=== PATIENT | male | born 1955 | race Two or more races ===

== ENCOUNTER 2016-10-24 15:03 | Inpatient (IN) | payer MEDICARE, MEDICAID ==
[~2016-10-24] VITALS: Ht 167.6 cm; Wt 61.2 kg
--- NOTE | 2016-10-24 15:30 | NUR ---
BBPA FROM PA: MISSED 2 HEMODIALYSIS TREATMENTS (M,W,F). PT ON VENT/TRACH. AAOX2. VSS. NOTED BUE EDEMA. SEEN BY FOR EVAL. SAFETY AND COMFORT MEASURES PROVIDED. WILL MONITOR.
[2016-10-24 15:43] VITALS: BP 103/51
[2016-10-24 16:35] LABS: BASOPHILS % (AUTO) 0.1 % (0.0-2.0); EOSINOPHILS # (AUTO) 0.2 /CMM (0.0-0.7); EOSINOPHILS % (AUTO) 1.4 % (0.0-6.0); HEMATOCRIT 24 % (39-51); HEMOGLOBIN 7.4 g/dL (13.5-17.5); LYMPHOCYTES # (AUTO) 0.7 /CMM (0.8-4.8); LYMPHOCYTES % (AUTO) 5.3 % (20.0-44.0); MEAN CORPUSCULAR HEMOGLOBIN 29 PG (26.0-33.0); MEAN CORPUSCULAR HGB CONC 31 g/dl (31.0-36.0); MEAN CORPUSCULAR VOLUME 95 fL (80-96); MONOCYTES # (AUTO) 0.2 /CMM (0.1-1.30); MONOCYTES % (AUTO) 1.7 % (2.0-12.0); NEUTROPHILS # (AUTO) 12.2 /CMM (1.8-8.9); NEUTROPHILS % (AUTO) 91.5 % (43.0-81.0); PLATELET COUNT (AUTO) 248 /CMM (150-450); RDW COEFFICIENT OF VARIATION 18.5 (11.5-15.0); RED BLOOD CELL COUNT(AUTO) 2.52 MIL/uL (4.5-6.0); WHITE BLOOD COUNT (AUTO) 13.3 K/uL (4.3-11.0)
[2016-10-24 16:50] LABS: MAGNESIUM 2.9 mg/dL (1.8-2.4); PHOSPHORUS 6.6 mg/dL (2.5-4.9)
[2016-10-24 16:53] LABS: ALBUMIN 1.8 g/dL (3.4-5.0); BILIRUBIN,DIRECT 0.1 mg/dL (0.0-0.2); BILIRUBIN,TOTAL 0.3 mg/dL (0.2-1.0); CALCIUM, SERUM 8.1 mg/dL (8.5-10.1); CREATININE 4.3 mg/dL (0.6-1.3); TOTAL PROTEIN, SERUM 7.5 g/dL (6.4-8.2)
--- NOTE | 2016-10-24 16:59 | NUR ---
PAGED DR LYMAN EXECUTIVE TALENT ACQUISITION CONSULTANT FOR DR KAUFFMAN FOR ER CONSULT
--- NOTE | 2016-10-24 17:12 | NUR ---
DR THOMSON ON THE PHONE WITH DR KAUFFMAN
[2016-10-24] MEDS ORDERED: LISI10TA5 GT (17:53)
[2016-10-24] MEDS ORDERED: OMEP40CA37 GT (17:53)
[2016-10-24] MEDS ORDERED: LEVO100T9 GT (17:53)
[2016-10-24] MEDS ORDERED: PARO20TA51 GT (17:53)
[2016-10-24] MEDS ORDERED: ISOS10TA2 GT (17:53)
[2016-10-24] MEDS ORDERED: HYDR-552 GT (17:53)
[2016-10-24] MEDS ORDERED: TIZA2TAB4 GT (17:53)
[2016-10-24] MEDS ORDERED: GLYC1TAB5 GT (17:53)
[2016-10-24] MEDS ORDERED: MELA3TAB GT (17:53)
[2016-10-24] MEDS ORDERED: AMIN30LI2 GT (17:53)
[2016-10-24] MEDS ORDERED: ZINC220T GT (17:53)
[2016-10-24] MEDS ORDERED: HYDR100T27 GT (17:53)
[2016-10-24] MEDS ORDERED: DOCU-170 GT (17:53)
[2016-10-24] MEDS ORDERED: CALC-838 PO (17:53)
[2016-10-24] MEDS ORDERED: INSU3INS6 SQ (17:53)
[2016-10-24] MEDS ORDERED: FOLI0.8T2 GT (17:53)
[2016-10-24] MEDS ORDERED: AMLO10TA2 GT (17:53)
[2016-10-24] MEDS ORDERED: ATOR40TA GT (17:53)
[2016-10-24] MEDS ORDERED: INSU100I14 SQ (17:53)
[2016-10-24] MEDS ORDERED: MAGNESIUM HYDROXIDE 30 ML UDC PO PRN (18:00)
[2016-10-24] MEDS ORDERED: MAG HYDROX/AL HYDROX/SIMETH 30 ML UDC PO PRN (18:00)
[2016-10-24] MEDS ORDERED: ZOLPIDEM TARTRATE 5 MG TABLET PO PRN (18:00)
[2016-10-24] MEDS ORDERED: ONDANSETRON HCL/PF 4 MG/2 ML VIAL IVP PRN (18:00)
[2016-10-24] MEDS ORDERED: ACETAMINOPHEN 325 MG TABLET PO PRN (18:00)
[2016-10-24] MEDS ORDERED: HYDROCODONE/APAP 5/325MG 1 EACH TABLET PO PRN (18:00)
--- NOTE | 2016-10-24 18:05 | NUR ---
REPORT GIVEN TO BRADEN LIZARRAGA FOR TELE.
--- NOTE | 2016-10-24 18:15 | NUR ---
MIDLINE NURSE AT BS.
--- NOTE | 2016-10-24 18:50 | NUR ---
SYSTEMS ENGINEER NOTES RECEIVED PT FROM E.R. STAFF, PT IS AWAKE, ALERT, MOUTHS WORDS, NOT IN DISTRESS, ASSISTED TO BED, PT ON VENT/TRACH, RT AT BEDSIDE, DIALYSIS CATH AT RIGHT UPPER LEG, MIDLINE AT RIGHT UPPER ARM, DIALYSIS NURSE AT STANDBY TO START DIALYSIS, KEPT PT COMFORTABLE IN BED.
[2016-10-24 19:53] VITALS: BP 110/58
[2016-10-24 20:00] VITALS: BP 110/58
--- NOTE | 2016-10-24 20:00 | NUR ---
TELE/RN NOTES PATIENT IN BED, HOB ELEVATED, ALERT, ORIENTED X1. VERBALIZE NEEDS BY MAKING SOUND W/ GOOD EYE CONTACT. RESPIRATIONS EVEN AND UNLABORED. REQUIRE MECHANICAL VENT FOR AIRWAY SUPPORT. SKIN WARM TO TOUCH. MIDLINE CATHETER PATENCY CHECK, LEFT HAND IV SITE PATENT AND ABLE TO FLUSH. G TUBE CHECK FOR PLACEMENT AND PATENCY. ABDOMEN CHECK. ABLE TO HEAR BOWEL SOUNDS IN ALL QUADRANT. REQUIRE EXTENSIVE ASSISTANCE FOR TURNING AND REPOSITION. WILL CONTINUE TO MONITOR. BUE AND BLE WEAK.
--- NOTE | 2016-10-24 21:15 | NUR ---
STUMP SHOOTER NOTES NEW ADMITTED PATIENT WAS BROUGHT FROM ER ON A GURNEY. PATIENT IS A 61 YO MALE WHO CAME FROM [facility] DUE TO MALFUNCTION OF DIALYSIS CATH AND WEAKNESS. ON TELE MONITORIN AT SR 83. ALERT, ORIENTED X2. CAN FOLLOW SIMPLE COMMANDS. VENT SETTING AT AC 20, VT 500 F1O2 40% PEEEP 5, HD EVERY MWF. CODE DNR W/ TUBE FEEDING AND VENT. WOUND CARE ISSUES , ON GTUBE FEEDING, DX HYPONATREMIASEVERE AND ESRD. BLOOD HGB LEVEL AT 7.4., S/P HD TODAY W 1 L OUT PUIT. B/P 123/61, PULSE 84. CALLED DALY SAID WILL RETURN CALL. AWAITING FOR CALL BACK.
--- NOTE | 2016-10-24 22:19 | NUR ---
TELE/RN NOTES CATRACHITO BOLANOS. INFORMED REGARDING PATIENT S/P HEMODIALYSIS 1L OUTPUT, HGB LEVEL 7.4. DX ESRD, SEVERE HYPONATREMIA. ON GTUBE, W/ TEMPORARY HD CATHETHER OFN LEFT THIGH. S/P MIDLINE INSERTION
--- NOTE | 2016-10-24 23:00 | NUR ---
tele/rn notes GTUBE CHECK FOR PLACEMENT, ABLE TO FLUSH FOR PATENCY.
[2016-10-25] VITALS: BP 132/66
--- NOTE | 2016-10-25 01:33 | NUR ---
TELE/RN NOTES MD CATRACHITO BOLANOS WAS INFORMED AND SAID TO FOLLOW UP WITH PRITESH IBARRA REGARDING HGB LEVEL 7.4, FOR ANY ORDER ALSO TO HOLD GTUBE FEEDING FOR NOW AND F/U FOR TONG JONAS MD.
[2016-10-25 04:00] VITALS: BP 123/67
--- NOTE | 2016-10-25 06:10 | NUR ---
316-1 PATIENT I HOB ELEVATE. ASSISTED/REPOSTION FOR COMFORT.EXTENSIVE ASSISTANCE NEEDED FOR REPOSITION, MULTIPLE WOUND AROUND BODY. GTUBE CHEK FOR PATENCY. WILL ENDORSE TO AM RN REGARDING PLAN OF CARE.BED IN LOCK POSITION.
[2016-10-25 07:45] LABS: BASOPHILS # (AUTO) 0.1 /CMM (0.0-0.2); BASOPHILS % (AUTO) 0.7 % (0.0-2.0); HEMATOCRIT 22 % (39-51); HEMOGLOBIN 7.2 g/dL (13.5-17.5); LYMPHOCYTES # (AUTO) 0.5 /CMM (0.8-4.8); LYMPHOCYTES % (AUTO) 3.8 % (20.0-44.0); MEAN CORPUSCULAR HEMOGLOBIN 29 PG (26.0-33.0); MEAN CORPUSCULAR HGB CONC 33 g/dl (31.0-36.0); MEAN CORPUSCULAR VOLUME 90 fL (80-96); MONOCYTES # (AUTO) 0.7 /CMM (0.1-1.30); MONOCYTES % (AUTO) 5.5 % (2.0-12.0); NEUTROPHILS # (AUTO) 12.1 /CMM (1.8-8.9); PLATELET COUNT (AUTO) 223 /CMM (150-450); RDW COEFFICIENT OF VARIATION 19.6 (11.5-15.0); RED BLOOD CELL COUNT(AUTO) 2.47 MIL/uL (4.5-6.0); WHITE BLOOD COUNT (AUTO) 13.5 K/uL (4.3-11.0)
--- NOTE | 2016-10-25 08:00 | NUR ---
MS RN NOTES PT RESTING IN BED, IN HIGH [place] POSITION. NO ACUTE DISTRESS OR DISCOMFORT NOTED. VENT SETTINGS NOTED. MIDLINE IS ON RIGHT UPPER ARM, INTACT PATENT. NO SOB NOTED. WILL CONTINUE TO MONITOR.
[2016-10-25 08:05] LABS: ALBUMIN 1.9 g/dL (3.4-5.0); BILIRUBIN,TOTAL 0.4 mg/dL (0.2-1.0); CREATININE 3.7 mg/dL (0.6-1.3); MAGNESIUM 2.7 mg/dL (1.8-2.4); PHOSPHORUS 4.6 mg/dL (2.5-4.9); POTASSIUM 4.5 mmol/L (3.5-5.1)
--- NOTE | 2016-10-25 08:15 | NUR ---
TURN OUT NOTES CALL RECEIVED FROM LAB REPORTING CRITICAL LAB RESULTS OF GLUCOSE 46 & BUN 115. GLUCOSE RECHECKED 36. NOTIFIED MD RECEIVED ORDERS FOR D 50 IV ONCE, NOTED & CARRIED OUT. PT IS ASYMPTOMATIC. WILL RECHECK BS LEVEL IN 15 MINUTES. CONTINUING TO MONITOR CLOSELY.
[2016-10-25] MEDS ORDERED: DEXTROSE 50%-WATER 50 ML DISP.SYRIN ONE (08:19)
--- NOTE | 2016-10-25 08:45 | NUR ---
TOBACCO ROLLER NOTES PT'S BLOOD SUGAR RECHECKED. WAS 101, IN STABLE CONDITION, GTUBE FEEDING STARTED ' NOVASOURCE 60 MLS/HR.' WILL CONTINUE TO MONITOR CLOSELY.
[2016-10-25] MEDS: RENAL NOVASOURCE 1,000 ML BOTTLE GT PRN ×2 (10:00→23:35)
--- NOTE | 2016-10-25 11:50 | NUR ---
DISABILITY SERVICES COORDINATOR NOTES PT REFUSED BODY ASSESSMENT & WOUND TREATMENT. ALLOWED WOUND TREATMENT TO HEELS & CHEST BUT REFUSED TO BACK OF THE BODY SITES DESPITE OF EXPLANATION OF RISK & BENEFITS OF DAILY WOUND CARE. WILL ENCOURAGE & EXPLAIN AGAIN TO ASSESS THE BACK TO APPLY THE WOUND TREATMENT. OBSERVING CLOSELY.
--- NOTE | 2016-10-25 11:57 | NUR ---
WOUND CARE CONSULT: PT PRESENTS WITH BILATERAL HEEL WOUNDS (LEFT INTACT DTI AND RT HEEL ESCHAR), PRESENT ON ADMISSION. PT REFUSED TO TURN FOR FULL SKIN ASSESSMENT OF BACK AND SACRAL/BUTTOCKS AREAS. LIMITED ASSESSMENT DUE TO PT REFUSAL WITH AGITATION. WOUND AND SKIN RECOMMENDATIONS MADE BASED ON PHOTO DOCUMENTATION AND NURSING DOCUMENTATION/SENDING FACILITY DOCUMENTATION. PT TO BE PLACED ON RINKU ISOFLEX LOW AIRLOSS BED. PT TO BE TURNED AND REPOSITIONED EVERY 2 HRS PT CONDITION PERMITS, HEELS FLOATED. WILL SEE PRN. IBARRA IN AGREEMENT WITH PLAN OF CARE. Addendum: 10/25/16 at 1201 by MARSHA VALENZUELA WNDNU Amended: Links added.
[2016-10-25 12:00] VITALS: BP 153/76
[2016-10-25] MEDS: hydrALAZINE HCL 50 MG TABLET GT SCH ×3 (13:00→20:19)
[2016-10-25] MEDS: ISOSORBIDE DINITRATE (10MG) 10 MG TABLET GT SCH (13:00)
[2016-10-25] MEDS: AMLODIPINE BESYLATE 10 MG TABLET GT SCH (13:00)
[2016-10-25] MEDS: LISINOPRIL (10MG) 10 MG TABLET GT SCH (13:00)
[2016-10-25] MEDS ORDERED: INSULIN ASPART HUMALOG/NOVOLOG 100 UNIT/ML CARTRIDGE SQ PRN (13:00)
[2016-10-25] MEDS ORDERED: PROSOURCE / PROSTAT (PYXIS) 30 ML UDC GT SCH (13:00)
--- NOTE | 2016-10-25 13:00 | NUR ---
CARETAKER GROUNDS NOTES BLOOD PRESSURE MEDICATIONS HELD DUE TO PT BEING DIALYZED.
[2016-10-25] MEDS: DOCUSATE SODIUM LIQ 100 MG/10 ML UDC GT SCH (13:16)
[2016-10-25] MEDS: LEVOTHYROXINE SODIUM 100 MCG TABLET GT SCH (13:19)
[2016-10-25] MEDS: PANTOPRAZOLE 40 MG/PACK PACK NG SCH (13:19)
[2016-10-25] MEDS: GLYCOPYRROLATE 1 MG TABLET GT SCH ×2 (13:19→20:19)
[2016-10-25] MEDS ORDERED: EPOETIN ALFA (10,000 UNIT) 10,000 UNIT/ML VIAL IV ONE (13:30)
[2016-10-25 16:00] VITALS: BP 142/69
--- NOTE | 2016-10-25 17:30 | NUR ---
POWERHOUSE ENGINEER NOTES PT ALLOWED TO DO WOUND TREATMENT ON THE BACK, DRESSING APPLIED. REPOSITIONED & MAD3E COMFORTABLE. OBSERVING CLOSELY.
[2016-10-25] MEDS: CALCIUM CARB 600MG /VIT D 1 EACH TABLET PO SCH (17:48)
[2016-10-25] MEDS: PAROXETINE HCL 20 MG TABLET GT SCH (17:50)
[2016-10-25] MEDS: HYDROCODONE/APAP 5/325MG 1 EACH TABLET GT SCH (17:50)
--- NOTE | 2016-10-25 19:06 | NUR ---
CALL CENTER REPRESENTATIVE NOTES PT IN BED, NON VERBAL, ALERT,ORIENTED. VENT SETTING NOTED. G TUBE INTACT PATENT, TOLERATING FEEDING WELL. ALL DUE MEDICATIONS ADMINISTERED, TOLERATED WELL. ALL NEEDS MET. PT NON COMPLAINT WITH REPOSITIONING & TURNING. BED IN LOW LOCKED POSITION. CALL LIGHT WITHIN REACH, WILL ENDORSE EPHRAIM TO PM SHIFT.
--- NOTE | 2016-10-25 19:36 | NUR ---
TELE/RN OPENING NOTES PATIENT IN HOB ELEVATED, OPENS EYES AND ABLE TO ASK FOR HELP BY POINTING AND MAKE SOUNDS. INFORMED TO TURNED ON THE FAN HE WANTS TO FEEL COLD. SKIN WARM TO TOUCH. SUCTION NEEDED. WILL CONTINUE TO PROVIDE CARE. GGTUBE PLACEMENT CHECK. FEEDING CHECK FOR RESIDUALS WITH ZERO RESIDUALS. RT AT BEDSIDE WILL PROVIDE RESPIRATORY CARE. BED IN LOCK POSITION. WILL CONTINUE TO PROVIDE. CARE.
--- NOTE | 2016-10-25 19:47 | NUR ---
TELE/RN NOTES PATIENT ON VENT, O2 SAT 98%. IV SITE ON LEFT HAND REMOVED. MONITORING FOR BLEEDING.COVERED WITH GAUZE AND TAPE.
[2016-10-25 20:00] VITALS: BP 147/73
[2016-10-25] MEDS ORDERED: DEXTROSE 50%-WATER 50 ML DISP.SYRIN IV PRN (20:00)
[2016-10-25] MEDS: *INSULIN REGULAR(HUMULIN R)HUM 100 UNIT/ML VIAL SQ PRN (21:00)
[2016-10-25] MEDS: INSULIN REGULAR, HUMAN 100 UNIT/ML 3 ML VIAL SQ PRN (21:07)
[2016-10-25] MEDS: INSULIN DETEMIR 100 UNIT/ML CARTRIDGE SQ SCH (21:09)
[2016-10-25] MEDS: ATORVASTATIN 40 MG TABLET GT SCH (21:19)
[2016-10-25] MEDS: BLOOD SUGAR DIAGNOSTIC 1 EACH STRIP VI SCH ×2 (21:19→22:00)
[2016-10-25] MEDS: TIZANIDINE HCL 4 MG TABLET GT SCH (21:19)
--- NOTE | 2016-10-25 21:36 | NUR ---
tele/rn notes patient observed grimace, administered tylenol 650mg via gtube. will continue monitor pain effectiveness.
[2016-10-25] MEDS ORDERED: Medication Not On Formulary EA (Melatonin 6 MG) GT SCH (22:00)
[2016-10-25] MEDS ORDERED: BLOOD SUGAR DIAGNOSTIC 1 EACH STRIP IN SCH (22:00)
--- NOTE | 2016-10-25 22:00 | NUR ---
TELE/RN NOTES INSULIN 2 UNIT WAS GIVEN SLIDING SCALE /SCAN LABEL BUT REFLECT AC INSTEAD OF HS.FOR RECORD KEEPING.
[2016-10-26] VITALS: BP_SYST 130; BP_SYST 133; BP_DIAS 63; BP_DIAS 69
[2016-10-26 04:00] VITALS: BP_SYST 125; BP_SYST 135; BP_DIAS 61; BP_DIAS 74
[2016-10-26] MEDS: GLYCOPYRROLATE 1 MG TABLET GT SCH ×3 (04:11→21:23)
[2016-10-26] MEDS: BLOOD SUGAR DIAGNOSTIC 1 EACH STRIP VI SCH ×4 (06:09→21:24)
[2016-10-26] MEDS: INSULIN REGULAR, HUMAN 100 UNIT/ML 3 ML VIAL SQ PRN (06:11)
--- NOTE | 2016-10-26 06:21 | NUR ---
316-1 tele/rn closing notes PATIENT IN HOB ELEVATED. EYES OPEN AND ABLE TO OPEN EYES. PROVIDED CARE REPOSTION FOR COmfort .WILL ENDORSE TO AM RN.RESPIRATIONS EVEN AND UNLABORED REQUIRE FREQUENT MONITORING TO PROVIDE CARE WILL ENDORSE TO AM RN FOR EPHRAIM. tele reading at SR 93. awake, alert,RESTING COMFORTABLY IN BED. BLOOD SUGAR CHECK RESULT 164 WITH 2 UNIT SLIDING SCALE COVERAGE. NO RESIDUAL IN FEEDING. PLACEMENT CHECK. APPLIED NEEDED DRESSING TO CLEANSE AND COVER GTUBE SITE. REPOSITION FOR COMFORT. SUCTION NEEDED. ABLE TO SLEEP ATLEAST 3 TO 4 HOURS.
[2016-10-26 08:00] VITALS: BP 146/71
--- NOTE | 2016-10-26 08:00 | NUR ---
TICK ERADICATOR: INITIAL NOTE RECEIVED PT ALERT AND ORIENTED X2. ON VENTILATOR. PT ABLE TO NOD AND OPEN EYES. NO DISTRESS NOTED. NO PAIN NOTED. NO SOB NOTED. ON G-TUBE FEEDING OF NOVASOURCE RUNNING AT 60CC. DENYS MIDLINE. SITE CLEAR. NO REDNESS. DRESSING INTACT. RESTING COMFORTABLY IN BED. CALL LIGHT WITHIN REACH.
[2016-10-26] MEDS: HYDROCODONE/APAP 5/325MG 1 EACH TABLET GT SCH ×2 (09:00→18:33)
[2016-10-26] MEDS: hydrALAZINE HCL 50 MG TABLET GT SCH ×4 (09:01→21:23)
[2016-10-26] MEDS: VIT B CMPLX 3/FA/VIT C/BIOTIN 1 TAB TABLET GT SCH (09:01)
[2016-10-26] MEDS: PROSOURCE / PROSTAT (PYXIS) 30 ML UDC GT SCH (09:03)
[2016-10-26] MEDS ORDERED: FEE PK DOSING 1 MIN EA MC ONE (11:00)
--- NOTE | 2016-10-26 11:15 | NUR ---
COMPLETED HEMODIALYSIS TODAY WITH 1 LITER OUTPUT BP 145/71 HR 93.PT REFUSED TO BE TRANSFERRED TO A SPECIAL SHERIDAN BED SAYING HE'S TIRED AND DOESN'T WANT TO BE BOTHERED.
[2016-10-26] MEDS ORDERED: VANCOMYCIN 1 GM in IV D5W 250 ML IV ONE (11:30)
[2016-10-26] MEDS: DOCUSATE SODIUM LIQ 100 MG/10 ML UDC GT SCH (12:22)
[2016-10-26] MEDS: LEVOTHYROXINE SODIUM 100 MCG TABLET GT SCH (12:22)
[2016-10-26] MEDS: LISINOPRIL (10MG) 10 MG TABLET GT SCH (12:22)
[2016-10-26] MEDS: AMLODIPINE BESYLATE 10 MG TABLET GT SCH (12:23)
[2016-10-26] MEDS: ISOSORBIDE DINITRATE (10MG) 10 MG TABLET GT SCH (12:23)
[2016-10-26] MEDS: PANTOPRAZOLE 40 MG/PACK PACK NG SCH (12:26)
--- NOTE | 2016-10-26 13:15 | NUR ---
RT PMV TRIALS DONE WITH SPEECH THERAPIST AT BEDSIDE. CUFF DEFLATED AND MONITORED PT. PT UNABLE TO TOLERATE FOR LESS THAN 5 MINUTES. INCREASE WOB AND DESATURATION NOTED. PT BEGAN TO VOMIT. PMV REMOVED AND CUFF INFLATED. PT STABLE, AWAKE/ALERT AND RESPONSIVE. SpO2 96-98%. ZIA ANDREA NOTIFIED AND AWARE. WILL CONTINUE TO MONITOR THE PATIENT CLOSELY.
[2016-10-26] MEDS: PIPERACILLIN /TAZOBACTAM 2.25 G in IV D5W 50 ML IV SCH ×3 (13:37→23:54)
--- NOTE | 2016-10-26 15:00 | NUR ---
RT RECEIVED PT TRACH'D ON [facility] VENT WITH SETTINGS PER MD ORDER. PT IS AWAKE AND RESPONSIVE. CHEESE FACTORY WORKER DONE. BILAT RHONCHI BREATH SOUNDS ON AUSCULTATION. VENT PLUGGED INTO RED OUTLET. AMBU BAG AT BEDSIDE. TRACH SECURED AND AIRWAY PATENT. SUCTIONED MODERATE AMOUNTS OF THICK PALE/YELLOW SECRETIONS. NO SOB OR SIGNS OF DISTRESS NOTED. WILL CONTINUE TO MONITOR THE PATIENT FOR ANY CHANGES. Addendum: 10/26/16 at 1827 by NATHALIA CHACON RT Amended: Links added.
[2016-10-26 16:00] VITALS: BP 141/52
--- NOTE | 2016-10-26 18:00 | NUR ---
PT RESTING IN BED DENYING ANY PAIN OR DISTRESS.PT DOESN'T WANT TO BE BOTHERED.CALL LIGHT PLACED WITHIN REACH. WITH HOB ELEVATED.WITH ONGOING GT FEEDING OF NOVASOURCE AT 60 ML/HR INFUSING WELL.
[2016-10-26] MEDS: ZINC SULFATE 220 MG CAPSULE GT SCH (18:33)
[2016-10-26] MEDS: CALCIUM CARB 600MG /VIT D 1 EACH TABLET PO SCH (18:33)
[2016-10-26] MEDS: PAROXETINE HCL 20 MG TABLET GT SCH (18:34)
--- NOTE | 2016-10-26 19:30 | NUR ---
QUARRY SUPERVISOR OPENING NOTES: PATIENT IN BED, AOX2, ON [facility] VENTILATION WITH THE FF SETTINGS: AC: 20, TV: 500, FIO2: 40; PEEP: 5. BREATHING EVEN AND UNLABORED WITH O2 SAT AT 99%. ON TELE MONITORING: SR AT RATE OF 80S WITH INVERTED T WAVE. PATIENT HAS A DENYS MIDLINE, INTACT AND PATENT TO FLUSH. R FEMORAL EBLA CATH WITH CLEAN AND INTACT DRESSING, NO SIGNS OF BLEEDING NOTED. WITH G TUBE FEEDING OF NOVASOURCE RUNNING AT 60 ML/HR, PATIENT TOLERATING FEEDING WELL WITH NO RESIDUAL NOTED. MAINTAINED HOB ELEVATED AT ALL TIMES. PATIENT'S DEMETRICE FEET WITH CLEAN AND INTACT DRESSINGS, MAINTAINED OFFLOADED ON PILLOWS. PROVIDED FOR COMFORT AND SAFETY. BED IN LOWEST AND LOCKED POSITION. SUCTIONED PRN. WILL CONT TO MONITOR.
[2016-10-26 20:03] VITALS: BP 141/69
[2016-10-26 20:05] VITALS: BP 141/69
[2016-10-26] MEDS: RENAL NOVASOURCE 1,000 ML BOTTLE GT PRN (21:04)
[2016-10-26] MEDS: ATORVASTATIN 40 MG TABLET GT SCH (21:23)
[2016-10-26] MEDS: TIZANIDINE HCL 4 MG TABLET GT SCH (21:23)
[2016-10-26] MEDS: INSULIN DETEMIR 100 UNIT/ML CARTRIDGE SQ SCH (21:28)
[2016-10-26] MEDS: *INSULIN REGULAR(HUMULIN R)HUM 100 UNIT/ML VIAL SQ PRN (21:30)
--- NOTE | 2016-10-26 21:45 | NUR ---
RN NOTES: PT'S BS CHECKED AT 183 MG/DL, ADMINISTERED 6 UNITS LEVEMIR AND 3 UNITS ERGULAR INSULIN. CONT CONTINUOUS GT FEEDING, TOLERATING FEEDING WELL.
[2016-10-27] VITALS (8 sets, daily range): BP systolic 117–149; BP diastolic 60–79
[2016-10-27] MEDS: GLYCOPYRROLATE 1 MG TABLET GT SCH ×3 (05:08→21:35)
[2016-10-27] MEDS: PIPERACILLIN /TAZOBACTAM 2.25 G in IV D5W 50 ML IV SCH ×4 (05:18→23:05)
[2016-10-27] MEDS: BLOOD SUGAR DIAGNOSTIC 1 EACH STRIP VI SCH ×4 (06:34→21:35)
[2016-10-27] MEDS: INSULIN REGULAR, HUMAN 100 UNIT/ML 3 ML VIAL SQ PRN ×3 (06:37→17:07)
--- NOTE | 2016-10-27 06:49 | NUR ---
SURGICAL MANAGER CLOSING NOTES: PATIENT IN BED, AOX2, [facility] V[facility], BREATHING EVEN AND UNLABORED, MAINTAINED HOB ELEVATED AND SUCTIONED PRN. O2 SATS AT 97-99% THROUGH SHIFT. ON TELE MONITORING WITH SR AT RATE OF 80S WITH INVERTED T WAVE. GT FEEDING OF NOVASOURCE RUNNING AT 60 ML/HR, PATIENT TOLERATING FEEDING WELL, NO RESIDUALS NOTED THROUGH SHIFT. BLOOD SUGAR CHECKED AT 147 MG/DL, ADMINISTERED 2 UNITS REGULAR INSULIN PER SCALE. MORNING CARE DONE, TURNED PATIENT Q 2/ PT PERMITS. PATIENT STILL COMBATIVE AND UNCOOPERATIVE. NO ACUTE CHANGE IN CONDITION NOTED THROUGH SHIFT. WILL ENDORSE TO AM RN FOR EPHRAIM.
--- NOTE | 2016-10-27 07:53 | NUR ---
FREELANCE ART DIRECTOR: INITIAL NOTE RECEIVED PT A/O X2. IS ABLE TO USE GESTURES AND HAND MOVEMENTS TO COMMUNICATE. NO DISTRESS NOTED. NO PAIN NOTED. NO SOB NOTED. RUQ MIDLINE INTACT. PATENT. NO REDNESS OR DRAINAGE. R FEMORAL QUARON CATH. DRESSING INTACT. ON VENTILATOR. RESTING COMFORTABLY IN BED. CALL LIGHT WITHIN REACH.
[2016-10-27 08:28] LABS: BASOPHILS # (AUTO) 0.1 /CMM (0.0-0.2); BASOPHILS % (AUTO) 0.6 % (0.0-2.0); HEMATOCRIT 24 % (39-51); HEMOGLOBIN 7.5 g/dL (13.5-17.5); LYMPHOCYTES # (AUTO) 0.7 /CMM (0.8-4.8); LYMPHOCYTES % (AUTO) 6.6 % (20.0-44.0); MEAN CORPUSCULAR HEMOGLOBIN 29 PG (26.0-33.0); MEAN CORPUSCULAR HGB CONC 32 g/dl (31.0-36.0); MEAN CORPUSCULAR VOLUME 92 fL (80-96); MONOCYTES # (AUTO) 0.9 /CMM (0.1-1.30); MONOCYTES % (AUTO) 8.7 % (2.0-12.0); NEUTROPHILS # (AUTO) 8.7 /CMM (1.8-8.9); NEUTROPHILS % (AUTO) 84.1 % (43.0-81.0); PLATELET COUNT (AUTO) 223 /CMM (150-450); RDW COEFFICIENT OF VARIATION 22.1 (11.5-15.0); RED BLOOD CELL COUNT(AUTO) 2.57 MIL/uL (4.5-6.0); WHITE BLOOD COUNT (AUTO) 10.3 K/uL (4.3-11.0)
[2016-10-27] MEDS: VIT B CMPLX 3/FA/VIT C/BIOTIN 1 TAB TABLET GT SCH (08:41)
[2016-10-27] MEDS: hydrALAZINE HCL 50 MG TABLET GT SCH ×4 (08:41→21:35)
[2016-10-27] MEDS: HYDROCODONE/APAP 5/325MG 1 EACH TABLET GT SCH ×2 (08:42→17:05)
[2016-10-27] MEDS: PROSOURCE / PROSTAT (PYXIS) 30 ML UDC GT SCH (08:45)
[2016-10-27 09:30] LABS: CALCIUM, SERUM 7.9 mg/dL (8.5-10.1); POTASSIUM 3.4 mmol/L (3.5-5.1)
[2016-10-27 09:31] LABS: CREATININE 2.8 mg/dL (0.6-1.3)
--- NOTE | 2016-10-27 10:00 | NUR ---
FUNERAL DRIVER NOTE: ATTEMPTED TO CHECK AND CHANGE DIAPER, AND PT REFUSED. PT IS UNCOOPERATIVE AND GESTURES TO BE LEFT ALONE. RISKS AND BENEFITS EXPLAINED. PT HITTING STAFF ON ATTEMPT OF CHECKING THE DIAPER.
[2016-10-27] MEDS ORDERED: VANCOMYCIN 500 MG in IV D5W 100 ML IV PRN (11:00)
--- NOTE | 2016-10-27 11:30 | NUR ---
DIRECTOR RECORDS MANAGEMENT: NOTE SPEECH THERAPY ATTEMPTED ANOTHER SWALLOW EVALUATION FOR THE PT TO BE ABLE TO HAVE ICE CHIPS. PT UNABLE TO SWALLOW OR TOLERATE ICE CHIPS WHILE BALLOON IS DEFLATED. PT UNABLE TO HAVE ICE CHIPS.
--- NOTE | 2016-10-27 12:00 | NUR ---
FIELD RING ASSEMBLER NOTE: RE- ATTEMPTED TO CHECK AND CHANGE DIAPER, AND PT REFUSED. PT IS UNCOOPERATIVE AND GESTURES TO BE LEFT ALONE. RISKS AND BENEFITS EXPLAINED. PT HITTING STAFF ON ATTEMPT OF CHECKING THE DIAPER.
[2016-10-27] MEDS: LISINOPRIL (10MG) 10 MG TABLET GT SCH (12:46)
[2016-10-27] MEDS: DOCUSATE SODIUM LIQ 100 MG/10 ML UDC GT SCH (12:46)
[2016-10-27] MEDS: LEVOTHYROXINE SODIUM 100 MCG TABLET GT SCH (12:46)
[2016-10-27] MEDS: ISOSORBIDE DINITRATE (10MG) 10 MG TABLET GT SCH (12:46)
[2016-10-27] MEDS: PANTOPRAZOLE 40 MG/PACK PACK NG SCH (12:46)
[2016-10-27] MEDS: AMLODIPINE BESYLATE 10 MG TABLET GT SCH (12:47)
--- NOTE | 2016-10-27 14:00 | NUR ---
FORGING MACHINE HAND NOTE: RE- ATTEMPTED TO CHECK AND CHANGE DIAPER, AND PT REFUSED. PT IS UNCOOPERATIVE AND GESTURES TO BE LEFT ALONE. RISKS AND BENEFITS EXPLAINED. PT HITTING STAFF ON ATTEMPT OF CHECKING THE DIAPER.
--- NOTE | 2016-10-27 14:41 | NUR ---
CUSTOMER EXPERT: NOTE PER MD CHAUDHARY, ORDERED TO KEEP BILATERAL UPPER EXTREMITIES ELEVATED WITH PILLOWS. PT DOES NOT WANT PILLOWS AND GETS IRRITATED. ALL RISKS AND BENEFITS EXPLAINED. PT MOUTHS TO TAKE PILLOWS AWAY.
--- NOTE | 2016-10-27 16:00 | NUR ---
MEDICAL AFFAIRS DIRECTOR NOTE: RE-ATTEMPTED TO CHECK AND CHANGE DIAPER, AND PT REFUSED. PT IS UNCOOPERATIVE AND GESTURES TO BE LEFT ALONE. RISKS AND BENEFITS EXPLAINED. PT HITTING STAFF ON ATTEMPT OF CHECKING THE DIAPER.
[2016-10-27] MEDS: CALCIUM CARB 600MG /VIT D 1 EACH TABLET PO SCH (17:04)
[2016-10-27] MEDS: ZINC SULFATE 220 MG CAPSULE GT SCH (17:04)
[2016-10-27] MEDS: PAROXETINE HCL 20 MG TABLET GT SCH (17:05)
--- NOTE | 2016-10-27 17:56 | NUR ---
MEDICAL CASE WORKER: NOTES PT REFUSES TO BE REPOSITIONED Q 2HRS. PT MOUTHS AND GESTURES TO GO AWAY AND STOP. ALL RISKS AND BENEFITS EXPLAINED. PT DID NOT COOPERATE, AND STILL REFUSED. ASKED MULTIPLE TIMES.
--- NOTE | 2016-10-27 18:08 | NUR ---
JUNIOR ACCOUNT MANAGER NOTE: RE-ATTEMPTED TO CHANGE DIAPER. PT FINALLY ACCEPTED TO BE CHANGED. PT STOOL WAS LARGE AND MODERATELY SOFT. SCROTAL REDNESS NOTED. PT TEACHING DONE. EMPHASIZED THE IMPORTANCE OF DIAPER CHANGING AND SKIN CARE MANAGEMENT. APPLIED Z-GUARD ON AFFECTED AREA. NEPILEX ON SACRAL REGION. REPOSITIONED PT.
--- NOTE | 2016-10-27 18:34 | NUR ---
EXCELLENCE LEADER: CLOSING NOTE PT ALERT AND ORIENTED X2. ON VINICIO. NO PAIN NOTED. ADMINISTERED ALL MEDICATIONS ON TIME. NO ADVERSE REACTIONS NOTED. NO DISTRESS NOTED. NO SOB NOTED. PT REFUSED TO BE REPOSITIONED ORDERED Q2HRS. PT UNCOOPERATIVE, AND GESTURES TO BE LEFT ALONE. PT DID NOT AGREE TO KEEP BOTH UPPER EXTREMITIES ELEVATED. PILLOWS PLACED AND PT PUSHES THEM AWAY. DID NOT AGREE TO HAVE A DIAPER CHANGE ALL DAY UNTIL 1800. SEVERAL ATTEMPTS TAKEN, ALL RISKS AND BENEFITS WHERE EXPLAINED. G-TUBE PATENT. PT MIDLINE PATENT. NO REDNESS, DRESSING INTACT. PT DOES NOT LIKE TO BE BOTHERED. RESTING COMFORTABLY IN BED. CALL LIGHT WITHIN REACH.
--- NOTE | 2016-10-27 19:40 | NUR ---
ACTUARIAL TECHNICIAN NOTE: PATIENT RESTING IN BED, NO ACUTE DISTRESS NOTED. BREATHING EVEN AND UNLABORED, NO SOB NOTED. VENT SETTINGS IN PLACE. DENYS MIDLINE IN PLACE. RIGHT FEMORAL ELBA CATH IN PLACE, NO BLEEDING NOTED. G-TUBE IN PLACE, NO RESIDUAL. HOB ELEVATED. NO S/S OF HYPER/HYPOGLYCEMIA NOTED. BED LOCKED AND IN LOWEST POSITION, CALL LIGHT IN REACH. WILL CONTINUE TO MONITOR.
[2016-10-27] MEDS: TIZANIDINE HCL 4 MG TABLET GT SCH (21:35)
[2016-10-27] MEDS: INSULIN DETEMIR 100 UNIT/ML CARTRIDGE SQ SCH (21:41)
[2016-10-27] MEDS: RENAL NOVASOURCE 1,000 ML BOTTLE GT PRN (21:43)
[2016-10-27] MEDS: ATORVASTATIN 40 MG TABLET GT SCH (21:43)
--- NOTE | 2016-10-27 22:30 | NUR ---
CLINICAL REHABILITATION LIAISON NOTE: PATIENT BLOOD SUGAR LEVEL 94 MG/DL, PATIENT TO RECEIVE LEVEMIR 6 UNITS PER MD ORDER. PATIENT ON G-TUBE FEEDING. NO S/S OF HYPER/HYPOGLYCEMIA NOTED. WILL CONTINUE TO MONITOR.
[2016-10-28] VITALS: BP 111/65
[2016-10-28 04:00] VITALS: BP 146/74
[2016-10-28] MEDS: GLYCOPYRROLATE 1 MG TABLET GT SCH ×3 (05:54→21:43)
[2016-10-28] MEDS: PIPERACILLIN /TAZOBACTAM 2.25 G in IV D5W 50 ML IV SCH ×3 (05:55→17:23)
--- NOTE | 2016-10-28 06:15 | NUR ---
CRYOGENICS REPAIRER NOTE: PATIENT RESTING IN BED, NO ACUTE DISTRESS NOTED. BREATHING EVEN AND UNLABORED, NO SOB NOTED. VENT SETTINGS IN PLACE. DENYS MIDLINE IN PLACE. RIGHT FEMORAL ELBA CATH IN PLACE, NO BLEEDING NOTED. G-TUBE IN PLACE. HOB ELEVATED. PATIENT BLOOD SUGAR LEVEL 165 MG/DL, PATIENT TO RECEIVE 3 UNITS OF INSULIN PER SLIDING SCALE, NO S/S OF HYPER/HYPOGLYCEMIA NOTED. PATIENT REFUSING TO BE CHANGED AND TO BE REPOSITIONED, EXPLAINED RISK AND BENEFITS, BUT CONTINUE TO REFUSE. PATIENT CLEAN AND WITH PILLOWS TO OFFLOAD BACK. BED LOCKED AND IN LOWEST POSITION, CALL LIGHT IN REACH. WILL ENDORSE TO DAY NURSE TO CONTINUE WITH PLAN OF CARE.
--- NOTE | 2016-10-28 07:15 | NUR ---
RN NOTES PT IS IN BED, RESTING COMFORTABLY. PT CONNECTED TO VENT VIA TRACH, NO SOB OR DISTRESS NOTED, O2 SAT AT 97%. DENYS MIDLINE INTACT AND SALINE LOCKED, RIGHT FEMORAL CATH IN PLACE. G-TUBE INTACT, RUNNING NOVASOURCE AT 60 ML/HR. SAFETY MEASURES ARE IN PLACE, CALL LIGHT IS IN REACH. WILL CONTINUE TO MONITOR.
[2016-10-28] MEDS: BLOOD SUGAR DIAGNOSTIC 1 EACH STRIP VI SCH ×4 (07:31→21:55)
[2016-10-28] MEDS: INSULIN REGULAR, HUMAN 100 UNIT/ML 3 ML VIAL SQ PRN ×4 (07:31→17:32)
[2016-10-28 08:00] VITALS: BP 132/65
[2016-10-28] MEDS: PROSOURCE / PROSTAT (PYXIS) 30 ML UDC GT SCH (08:08)
[2016-10-28] MEDS: VIT B CMPLX 3/FA/VIT C/BIOTIN 1 TAB TABLET GT SCH (08:08)
[2016-10-28] MEDS: HYDROCODONE/APAP 5/325MG 1 EACH TABLET GT SCH ×2 (08:09→16:38)
[2016-10-28] MEDS: hydrALAZINE HCL 50 MG TABLET GT SCH ×4 (08:12→21:44)
[2016-10-28 12:00] VITALS: BP 130/65
[2016-10-28] MEDS: DOCUSATE SODIUM LIQ 100 MG/10 ML UDC GT SCH (12:14)
[2016-10-28] MEDS: LEVOTHYROXINE SODIUM 100 MCG TABLET GT SCH (12:14)
[2016-10-28] MEDS: PANTOPRAZOLE 40 MG/PACK PACK NG SCH (12:14)
[2016-10-28] MEDS: ISOSORBIDE DINITRATE (10MG) 10 MG TABLET GT SCH (12:15)
[2016-10-28] MEDS: AMLODIPINE BESYLATE 10 MG TABLET GT SCH (12:15)
[2016-10-28] MEDS: LISINOPRIL (10MG) 10 MG TABLET GT SCH (13:03)
[2016-10-28 16:00] VITALS: BP 130/68
[2016-10-28] MEDS: LACTOBACILLUS RHAMNOSUS GG 1 EACH CAP.SPRINK GT SCH (16:38)
[2016-10-28] MEDS: ZINC SULFATE 220 MG CAPSULE GT SCH (16:38)
[2016-10-28] MEDS: CALCIUM CARB 600MG /VIT D 1 EACH TABLET PO SCH (16:38)
[2016-10-28] MEDS: PAROXETINE HCL 20 MG TABLET GT SCH (16:38)
--- NOTE | 2016-10-28 18:35 | NUR ---
RN NOTES PT IS IN BED IN SEMI-FOWLERS, RESTING COMFORTABLY. PT CONNECTED TO VENT, ALL SETTINGS ARE ACCURATE, NO SOB, O2 SAT AT 98%. DENYS MIDLINE INTACT AND PATENT, RUNNING VANCO AT 100 ML/HR. R FEMORAL ELBA CATH, INTACT AND IN PLACE, USED FOR DIALYSIS TODAY. G-TUBE IS INTACT AND FLUSHED. PT WAS CLEANED/CHANGED AND REPOSITIONED THROUGHOUT SHIFT. SAFETY MEASURES ARE IN PLACE, CALL LIGHT IS IN REACH. WILL ENDORSE TO BUILD AND RELEASE MANAGER RN FOR CONTINUITY OF CARE.
--- NOTE | 2016-10-28 19:00 | NUR ---
RN MS NOTES PT RECEIVED AWAKE IN BED, A/O X 2, PATIENT NOT IN ACUTE RESPIRATORY/DISTRESS, IV SITE INTACT NO S/S OF INFILTRATION. ALL VENT SETTING ARE ACCURATE ORDERED, CALL LIGHT WITHIN REACH. SAFETY MEASURES IN PLACE, ON LOW BED, WILL CONTINUE TO MONITOR PT.
[2016-10-28 20:00] VITALS: BP 137/72
[2016-10-28] MEDS: ATORVASTATIN 40 MG TABLET GT SCH (21:43)
[2016-10-28] MEDS: TIZANIDINE HCL 4 MG TABLET GT SCH (21:43)
[2016-10-28] MEDS: RENAL NOVASOURCE 1,000 ML BOTTLE GT PRN (21:44)
[2016-10-28] MEDS: *INSULIN REGULAR(HUMULIN R)HUM 100 UNIT/ML VIAL SQ PRN (21:55)
[2016-10-28] MEDS: INSULIN DETEMIR 100 UNIT/ML CARTRIDGE SQ SCH (22:03)
[2016-10-29] VITALS (13 sets, daily range): BP systolic 110–143; BP diastolic 60–76
--- NOTE | 2016-10-29 00:36 | NUR ---
PATIENT DISCHARGE PATIENT LEFT AT 0030 TO HOME PER MD, PATIENT ON STABLE CONDITION NO S/S OF DISTRESS NOTED, NO A/R FROM BT, NO CHEST PAIN, NO HEADACHE, NO NAUSEA AND VOMITING, NO COMPLAINS OF PAIN, VS STABLE, TOLERATING ROOM AIR 98%, HEALTH EDUCATION AND EXIT CARE WAS PROVIDED, EDUCATION ABOUT DISEASE AND RISKS AND BENEFITS FOLLOW UP CARE PROVIDED, VERBALIZED UNDERSTANDING. DOCUMENTS WAS PROVIDED. IV SITE WAS REMOVED L [id number] WITH MINIMAL BLEEDING, APPLIED CLEAN DRESSING FOR PRESSURE AND KEPT CLEAN AND DRY. TOLERATED PROCEDURE WELL. MD AWARE OF PATIENT BEING DISCHARGE, ALL BELONGINGS WAS TAKEN, ASSIST PATIENT TO GO TO THE WHEELCHAIR WITH [employer] TO THE [employer] FOR TRANSPORTATION WITH NEIDA BERNARD PATIENT APPRECIATIVE TO NURSES AND THANKFUL. PATIENT LEFT WITH THEIR OWN TRANSPORTATION. Addendum: 10/29/16 at 0040 by JAMISON LAYNE RN ADDENDUM: MISTAKEN ENTRY THIS DOCUMENTATION IS FOR DIFFERENT PATIENT
[2016-10-29] MEDS: PIPERACILLIN /TAZOBACTAM 2.25 G in IV D5W 50 ML IV SCH ×5 (00:51→23:56)
[2016-10-29] MEDS: GLYCOPYRROLATE 1 MG TABLET GT SCH ×3 (05:03→21:19)
[2016-10-29] MEDS: BLOOD SUGAR DIAGNOSTIC 1 EACH STRIP VI SCH ×4 (05:34→22:39)
[2016-10-29] MEDS: INSULIN REGULAR, HUMAN 100 UNIT/ML 3 ML VIAL SQ PRN ×3 (05:44→16:52)
--- NOTE | 2016-10-29 06:37 | NUR ---
ROLL LINE OPERATOR CLOSING NOTES PATIENT COMFORTABLY ASLEEP AND EASILY AWAKEN, A/0 X 2, HEAD OF BED ELEVATED FOR BETTER LUNG EXPANSION AND GOOD CIRCULATION. PT MOUTH WORDS, ATTACH TO TELE MONITOR, 02 SAT 100 %, TOLERATING SAME VENT SETTINGS ORDERED, RESPIRATIONS EVEN AND UNLABORED DENYS MIDLINE IV SITE INTACT WITH NO S/S OF INFILTRATED PATENT AND FLUSHED, FREQUENT VISUAL CHECK DONE FOR SAFETY EVERY 2 HOURS. NURSING CARE RENDERED, NEEDS ATTENDED AND ANTICIPATED, KEPT CLEAN AND DRY AND COMFORTABLE, GOOD SKIN CARE PROVIDED. PT IS NON COMPLIANT OF TURNING EVERY 2 HOURS DESPITE EXPLANATION RISKS AND BENEFITS EXPLAINED UNABLE TO ASSESS WELL SACRUM BUT EDUCATION WAS PROVIDED TO THE PATIENT. DEFER TO MD. OFFLOAD AT ALL TIMES. SAFE HAZARD FREE ENVIRONMENT PROVIDED. CALL LIGHT WITHIN EASY TO REACH, ON LOW BED AT ALL TIMES TO ENSURE SAFETY, WILL ENDORSE TO THE NEXT SHIFT CONTINUE PLAN OF CARE
[2016-10-29 07:15] LABS: BASOPHILS % (AUTO) 0.5 % (0.0-2.0); HEMATOCRIT 22 % (39-51); LYMPHOCYTES # (AUTO) 0.6 /CMM (0.8-4.8); LYMPHOCYTES % (AUTO) 6.5 % (20.0-44.0); MEAN CORPUSCULAR HEMOGLOBIN 29 PG (26.0-33.0); MEAN CORPUSCULAR HGB CONC 31 g/dl (31.0-36.0); MEAN CORPUSCULAR VOLUME 94 fL (80-96); MONOCYTES # (AUTO) 0.7 /CMM (0.1-1.30); MONOCYTES % (AUTO) 7.4 % (2.0-12.0); NEUTROPHILS # (AUTO) 7.5 /CMM (1.8-8.9); NEUTROPHILS % (AUTO) 85.6 % (43.0-81.0); PLATELET COUNT (AUTO) 229 /CMM (150-450); RDW COEFFICIENT OF VARIATION 24.7 (11.5-15.0); RED BLOOD CELL COUNT(AUTO) 2.36 MIL/uL (4.5-6.0); WHITE BLOOD COUNT (AUTO) 8.8 K/uL (4.3-11.0)
--- NOTE | 2016-10-29 07:15 | NUR ---
RN NOTES PT IS IN BED SLEEPING COMFORTABLY IN SEMI-FOWLERS POSITION. PT CONNECTED TO VENT, NO SIGNS OF DISTRESS AND O2 SAT AT 100%. DENYS MIDLINE INTACT AND PATENT, SL. RIGHT FEMORAL ELBA CATH INTACT. G-TUBE INTACT AND RUNNING NOVASOURCE AT 60 ML/HR. SAFETY MEASURES ARE IN PLACE, CALL LIGHT IS IN REACH. WILL CONTINUE TO MONITOR.
[2016-10-29 07:34] LABS: HEMOGLOBIN 6.9 g/dL (13.5-17.5)
[2016-10-29 08:09] LABS: CREATININE 2.8 mg/dL (0.6-1.3); POTASSIUM 3.2 mmol/L (3.5-5.1)
[2016-10-29] MEDS: VIT B CMPLX 3/FA/VIT C/BIOTIN 1 TAB TABLET GT SCH (08:16)
[2016-10-29] MEDS: HYDROCODONE/APAP 5/325MG 1 EACH TABLET GT SCH ×2 (08:16→16:44)
[2016-10-29] MEDS: LACTOBACILLUS RHAMNOSUS GG 1 EACH CAP.SPRINK GT SCH ×2 (08:16→16:44)
[2016-10-29] MEDS: PROSOURCE / PROSTAT (PYXIS) 30 ML UDC GT SCH (08:16)
[2016-10-29] MEDS: hydrALAZINE HCL 50 MG TABLET GT SCH ×4 (08:17→21:19)
[2016-10-29 09:30] LABS: IRON, SERUM 44 ug/dl (50-175); TOTAL IRON BINDING CAPACITY 98 ug/dl (250-450)
[2016-10-29 10:13] LABS: BAND % (MANUAL) 1 % (0.0-5.0); EOSINOPHILS % (MANUAL) 2 % (0-4); LYMPHOCYTES % (MANUAL) 5 % (16-48); MONOCYTES % (MANUAL) 5 % (0-11.0); NEUTROPHILS % (MANUAL) 87 (42-76)
[2016-10-29] MEDS: DOCUSATE SODIUM LIQ 100 MG/10 ML UDC GT SCH (12:53)
[2016-10-29] MEDS: LEVOTHYROXINE SODIUM 100 MCG TABLET GT SCH (12:53)
[2016-10-29] MEDS: PANTOPRAZOLE 40 MG/PACK PACK NG SCH (12:53)
[2016-10-29] MEDS: AMLODIPINE BESYLATE 10 MG TABLET GT SCH (12:54)
[2016-10-29] MEDS: LISINOPRIL (10MG) 10 MG TABLET GT SCH (12:54)
[2016-10-29] MEDS: ISOSORBIDE DINITRATE (10MG) 10 MG TABLET GT SCH (12:54)
[2016-10-29] MEDS: PAROXETINE HCL 20 MG TABLET GT SCH (16:44)
[2016-10-29] MEDS: ZINC SULFATE 220 MG CAPSULE GT SCH (16:44)
[2016-10-29] MEDS: CALCIUM CARB 600MG /VIT D 1 EACH TABLET PO SCH (16:44)
--- NOTE | 2016-10-29 18:47 | NUR ---
RN NOTES PT IS RESTING IN BED COMFORTABLY IN SEMI-FOWLERS POSITION. PT CONNECTED TO VENT, ALL SETTINGS ARE ACCURATE, SATING AT 100%. DENYS MIDLINE INTACT AND PATENT AND R FEMORAL ELBA CATH INTACT. G-TUBE IS INTACT, FEEDING OFF AT 1600 AND WILL BE BACK ON AT 2200. ALL MEDS WERE GIVEN ORDERED AND 1 UNIT OF RBC WAS GIVEN, PT HAD NO ADVERSE REACTION. ALL PT NEEDS WERE MET, SKIN CARE WAS PROVIDED AND Z-GUARD WAS APPLIED. SAFETY MEASURES ARE IN PLACE, CALL LIGHT IS IN REACH. WILL ENDORSE TO TRIPLE AIR VALVE TESTER RN FOR CONTINUITY OF CARE.
--- NOTE | 2016-10-29 19:20 | NUR ---
TELE/RN NOTES RECEIVED PT. LYING IN BED RESTING. PT. IS ORIENTED TO SELF AND ABLE TO MOUTH WORDS. PT. IS VENT/TRACH DEPENDENT. PT. HAS PORTEX 8 TRACH. CURRENT VENT SETTINGS = AC 20, TV 500, FIO2 40, PEEP 5. BREATHING EVEN AND UNLABORED. NO SOB, RESPIRATORY DISTRESS OR S/S OF PAIN NOTED AT THIS TIME. PT. WITH G-TUBE PRESENT AND INTACT. PT. WITH RIGHT UPPER ARM MIDLINE PRESENT, PATENT AND INTACT. PT. WITH RIGHT FEMORAL ELBA CATH PRESENT AND INTACT. BED IN LOWEST POSITION, CALL LIGHT WITHIN REACH, SIDE RAILS UP X2, WILL CONTINUE TO MONITOR. Addendum: 10/29/16 at 1931 by ROMI MURRELL RN PT. WITH EXTERNAL CLINICAL SUPPORT TECH PRESENT AND INTACT. CURRENT RHYTHM = SINUS RHYTHM HR 76.
[2016-10-29] MEDS: ATORVASTATIN 40 MG TABLET GT SCH (21:19)
[2016-10-29] MEDS: TIZANIDINE HCL 4 MG TABLET GT SCH (21:19)
[2016-10-29] MEDS: INSULIN DETEMIR 100 UNIT/ML CARTRIDGE SQ SCH (22:41)
[2016-10-29] MEDS: RENAL NOVASOURCE 1,000 ML BOTTLE GT PRN (22:41)
[2016-10-30] VITALS (7 sets, daily range): BP systolic 125–155; BP diastolic 61–96
[2016-10-30] MEDS ORDERED: EPOETIN ALFA (10,000 UNIT) 10,000 UNIT/ML VIAL IV ONE ×2 (05:00→15:00)
[2016-10-30] MEDS: GLYCOPYRROLATE 1 MG TABLET GT SCH ×3 (05:52→21:02)
[2016-10-30] MEDS: PIPERACILLIN /TAZOBACTAM 2.25 G in IV D5W 50 ML IV SCH ×3 (05:52→17:33)
--- NOTE | 2016-10-30 06:36 | NUR ---
TELE/RN NOTES PT. IS LYING IN BED RESTING. PT. IS VENT/TRACH DEPENDENT. PT. HAS PORTEX 8 TRACH. CURRENT VENT SETTINGS = AC 20, TV 500, FIO2 40, PEEP 5. BREATHING EVEN AND UNLABORED. NO SOB, RESPIRATORY DISTRESS OR S/S OF PAIN NOTED AT THIS TIME. PT. WITH EXTERNAL HUMAN RESOURCES OPERATIONS DIRECTOR PRESENT AND INTACT. CURRENT RHYTHM = SINUS RHYTHM HR 84. PT. WITH G-TUBE PRESENT AND INTACT ADMINISTERING TO PT. NOVASOURCE @ 60 ML/HR. PT. TOLERATING WELL. NO RESIDUAL NOTED AT THIS TIME AND THROUGHOUT SHIFT. PT. WITH RIGHT UPPER ARM MIDLINE PRESENT, PATENT AND INTACT. PT. WITH RIGHT FEMORAL ELBA CATH PRESENT AND INTACT. ALL PT. NEEDS MET. PT. BILATERAL HEELS OFFLOADED AT ALL TIMES. PT. TURNED AND REPOSITIONED Q2H AND NEEDED. BED IN LOWEST POSITION, CALL LIGHT WITHIN REACH, SIDE RAILS UP X2, WILL ENDORSE TO DAYSHIFT NURSE FOR CONTINUITY OF CARE.
[2016-10-30] MEDS: BLOOD SUGAR DIAGNOSTIC 1 EACH STRIP VI SCH ×4 (06:56→21:02)
[2016-10-30] MEDS: INSULIN REGULAR, HUMAN 100 UNIT/ML 3 ML VIAL SQ PRN ×3 (06:58→17:41)
--- NOTE | 2016-10-30 07:10 | NUR ---
RESIDENT ATHLETIC TRAINER OPENING NOTES RECEIVED PT. FROM NIGHTSHIFT NURSE IN STABLE CONDITION. PT. A/O X1 AND VENT/TRACH DEPENDENT(PORTEX 8 TRACH) CURRENT VENT SETTINGS ARE FOLLOWED= AC 20, TV 500, FIO2 40, PEEP 5. BREATHING EVEN AND UNLABORED. NO SOB OR SIGNS OF DISTRESS NOTED. PT IS SINUS RHYTHM ON THE TELE MONITOR WITH A HR OF 89. G-TUBE NOTED AND INTACT ADMINISTERING NOVASOURCE @ 60 ML/HR. PT. TOLERATING WELL. NO RESIDUAL NOTED AT THIS TIME. RIGHT UPPER ARM MIDLINE PRESENT, PATENT AND INTACT. NO REDNESS OR SIGNS OF INFILTRATION NOTED. PT. WITH RIGHT FEMORAL ELBA CATH PRESENT AND INTACT. BED IN LOW LOCKED POSITION, SIDE RAILS UP X3, CALL LIGHT WITHIN REACH. WILL CONTINUE TO MONITOR.
[2016-10-30] MEDS: PROSOURCE / PROSTAT (PYXIS) 30 ML UDC GT SCH (08:49)
[2016-10-30] MEDS: VIT B CMPLX 3/FA/VIT C/BIOTIN 1 TAB TABLET GT SCH (08:49)
[2016-10-30] MEDS: LACTOBACILLUS RHAMNOSUS GG 1 EACH CAP.SPRINK GT SCH ×2 (08:49→17:33)
[2016-10-30] MEDS: HYDROCODONE/APAP 5/325MG 1 EACH TABLET GT SCH ×2 (08:50→17:34)
[2016-10-30] MEDS: hydrALAZINE HCL 50 MG TABLET GT SCH ×4 (08:50→21:02)
[2016-10-30 09:02] LABS: BASOPHILS # (AUTO) 0.1 /CMM (0.0-0.2); EOSINOPHILS # (AUTO) 0.4 /CMM (0.0-0.7); EOSINOPHILS % (AUTO) 3.8 % (0.0-6.0); HEMATOCRIT 25 % (39-51); LYMPHOCYTES # (AUTO) 0.6 /CMM (0.8-4.8); MEAN CORPUSCULAR HEMOGLOBIN 29 PG (26.0-33.0); MEAN CORPUSCULAR HGB CONC 32 g/dl (31.0-36.0); MEAN CORPUSCULAR VOLUME 90 fL (80-96); MONOCYTES # (AUTO) 0.8 /CMM (0.1-1.30); MONOCYTES % (AUTO) 8.2 % (2.0-12.0); NEUTROPHILS # (AUTO) 7.4 /CMM (1.8-8.9); PLATELET COUNT (AUTO) 226 /CMM (150-450); RDW COEFFICIENT OF VARIATION 27.7 (11.5-15.0); WHITE BLOOD COUNT (AUTO) 9.3 K/uL (4.3-11.0)
--- NOTE | 2016-10-30 09:10 | NUR ---
MEDICAL BILLER/CODER NOTES 0900 BP MEDICATION HELD BECAUSE OF SCHEDULED HEMODIALYSIS
[2016-10-30] MEDS: PANTOPRAZOLE 40 MG/PACK PACK NG SCH (13:19)
[2016-10-30] MEDS: DOCUSATE SODIUM LIQ 100 MG/10 ML UDC GT SCH (13:19)
[2016-10-30] MEDS: LEVOTHYROXINE SODIUM 100 MCG TABLET GT SCH (13:19)
[2016-10-30] MEDS: ISOSORBIDE DINITRATE (10MG) 10 MG TABLET GT SCH (13:23)
[2016-10-30] MEDS: LISINOPRIL (10MG) 10 MG TABLET GT SCH (13:24)
[2016-10-30] MEDS: AMLODIPINE BESYLATE 10 MG TABLET GT SCH (13:24)
[2016-10-30] MEDS: SOD FERRIC GLUC 125 MG in IV NS 0.9% 100 ML IV SCH (14:16)
[2016-10-30] MEDS: RENAL NOVASOURCE 1,000 ML BOTTLE GT PRN (17:27)
[2016-10-30] MEDS: ZINC SULFATE 220 MG CAPSULE GT SCH (17:33)
[2016-10-30] MEDS: CALCIUM CARB 600MG /VIT D 1 EACH TABLET PO SCH (17:34)
[2016-10-30] MEDS: PAROXETINE HCL 20 MG TABLET GT SCH (17:34)
--- NOTE | 2016-10-30 18:54 | NUR ---
VALVE INSPECTOR CLOSING NOTES PT REMAINS IN STABLE CONDITION. ALL NEEDS WERE MET DURING SHIFT AND ORDERS CARRIED OUT ACCORDINGLY. ALL VENT SETTINGS REMAIN IN PLACE. G TUBE REMAINS IN TACT AND PATENT. NO RESIDUALS ASPIRATED DURING SHIFT. PLACEMENT CONFIRMED BY AUSCULTATION. TUBE FEEDINGS REMAIN @ 60ML/HR. PT. HAS BEEN TOLERATING FEEDING WELL. PT WAS KEPT DRY, REPOSITIONED AND TURNED Q 2HRS. 1000ML WAS REMOVED FROM PT AFTER HD TREATMENT VITAL SIGNS REMAIN WNL. WILL ENDORSE TO NIGHTSHIFT NURSE FOR EPHRAIM
--- NOTE | 2016-10-30 19:30 | NUR ---
RN NOTE; RECEIVED PT IN BED AWAKE, VENT DEPENDENT, TRACH IN PLACE. BREATHING EVENLY. NO SOB. NAD. SKIN WARM AND DRY. NO S/S OF PAIN OR DISCOMFORT. GT IN PLACE. GTF MICHEAL WELL. NEEDS ATTENDED . BED LOW LOCKED. CALL LIGHT WITHIN REACH. WILLCONT TO MONITOR.
[2016-10-30] MEDS: TIZANIDINE HCL 4 MG TABLET GT SCH (21:02)
[2016-10-30] MEDS: ATORVASTATIN 40 MG TABLET GT SCH (21:02)
[2016-10-30] MEDS: *INSULIN REGULAR(HUMULIN R)HUM 100 UNIT/ML VIAL SQ PRN (21:07)
[2016-10-30] MEDS: INSULIN DETEMIR 100 UNIT/ML CARTRIDGE SQ SCH (21:08)
[2016-10-31] VITALS (7 sets, daily range): BP systolic 119–151; BP diastolic 57–74
[2016-10-31] MEDS: PIPERACILLIN /TAZOBACTAM 2.25 G in IV D5W 50 ML IV SCH ×4 (00:17→18:09)
[2016-10-31] MEDS: GLYCOPYRROLATE 1 MG TABLET GT SCH ×3 (05:49→21:33)
[2016-10-31] MEDS: RENAL NOVASOURCE 1,000 ML BOTTLE GT PRN (06:00)
--- NOTE | 2016-10-31 06:14 | NUR ---
RN NOTE; PT IN BED AWAKE AND RESPONSIVE. BREATHING EVENLY. TRACH IN [place]. VENT DEPENDENT. GT IN PLACE. GTF IMCHEAL WELL. SR ON TELE MONITOR. NO S./S OR C/O PAIJN OR DISCOMFORT. CLEANED AND DRIED. BED BATH AND GOOD SKIN CARE RENDERED. BED LOW LOCKED .CALL LIGHT WITHIN REACH. WILL CONT TO MONITOR AND WILL ENDORSE TO AM SHIFT FOR EPHRAIM.
[2016-10-31] MEDS: BLOOD SUGAR DIAGNOSTIC 1 EACH STRIP VI SCH ×4 (06:34→21:33)
[2016-10-31] MEDS: INSULIN REGULAR, HUMAN 100 UNIT/ML 3 ML VIAL SQ PRN ×2 (06:37→18:35)
--- NOTE | 2016-10-31 07:15 | NUR ---
HEAD HOST/HOSTESS OPENING NOTE REPORT RECEIVED ON THE PATIENT. PATIENT IS ASLEEP IN BED. EXTERNAL TELE MONITOR ON. SR HR 84. NO S/S OF DISTRESS. PATIENT IS NON-VERBAL/VENTILATOR DEPENDANT. VENTILATOR SETTING ORDERED. BED IS IN LOWEST POSITION, LOCKED, SIDE RAILS UP X 3, BED ALARM ON. CALL LIGHT WITHIN REACH. ALL NEEDS ARE MET. WILL CONTINUE TO MONITOR.
--- NOTE | 2016-10-31 07:41 | NUR ---
RT PT RECEIVED TRACHED ON THE VENT WITH NOTED SETTINGS. PT IS AWAKE AND ALERT. VENT ALARMS ARE SET AND AUDIBLE WITH BVM BY BEDSIDE. QUILLER MACHINE FIXER CUFF PRESSURE NOTED. VENT IS PLUGGED INTO RED OUTLET. SX SMALL THICK WHITE/CLEAR SECRETIONS. NO RESPIRATORY DISTRESS NOTED AT THIS TIME, WILL CONTINUE TO MONITOR. Addendum: 10/31/16 at 1051 by GWENDOLYN ANDREWS RT Amended: Links added.
--- NOTE | 2016-10-31 09:10 | NUR ---
AMUSEMENT OR RECREATION CARD CHECKER NOTE RT AT THE BEDSIDE.
[2016-10-31] MEDS: VIT B CMPLX 3/FA/VIT C/BIOTIN 1 TAB TABLET GT SCH (09:40)
[2016-10-31] MEDS: hydrALAZINE HCL 50 MG TABLET GT SCH ×4 (09:41→21:34)
[2016-10-31] MEDS: HYDROCODONE/APAP 5/325MG 1 EACH TABLET GT SCH ×3 (09:42→18:02)
[2016-10-31] MEDS: LACTOBACILLUS RHAMNOSUS GG 1 EACH CAP.SPRINK GT SCH ×2 (09:43→18:00)
[2016-10-31] MEDS: Z GUARD REMEDY 2 OZ OINT TP PRN ×2 (09:43→18:04)
[2016-10-31] MEDS: PROSOURCE / PROSTAT (PYXIS) 30 ML UDC GT SCH (09:52)
[2016-10-31] MEDS: DOCUSATE SODIUM LIQ 100 MG/10 ML UDC GT SCH (12:12)
[2016-10-31] MEDS: PANTOPRAZOLE 40 MG/PACK PACK NG SCH (12:12)
[2016-10-31] MEDS: LEVOTHYROXINE SODIUM 100 MCG TABLET GT SCH (12:12)
[2016-10-31] MEDS: ISOSORBIDE DINITRATE (10MG) 10 MG TABLET GT SCH (12:24)
[2016-10-31] MEDS: AMLODIPINE BESYLATE 10 MG TABLET GT SCH (12:25)
[2016-10-31] MEDS: LISINOPRIL (10MG) 10 MG TABLET GT SCH (12:26)
--- NOTE | 2016-10-31 12:31 | NUR ---
CORNETIST NOTE BLOOD GLUCOSE 106. NO INSULIN COVERAGE PER SCALE. NI S/S OF DISTRESS. PATIENT IS RESTING COMFORTABLY WITH EYES CLOSED. RESPONDS TO NAME BY OPENING EYES. VS WNL. LISINOPRIL HELD AT THIS TIME. PATIENT RECEIVED HYDRALAZINE, ISOSORBIDE AND AMLODIPINE AT THE SAME TIME. WILL RECHECK BP LATER AND ADMINISTER LISINOPRIL ORDERED IF BP IS NOT DECREASED.
--- NOTE | 2016-10-31 14:20 | NUR ---
television newscast director notes called and spoke to manjinder pharmacist to have rockyit brought up. states she will have brought up
[2016-10-31 14:48] LABS: CALCIUM, SERUM 8.1 mg/dL (8.5-10.1); CREATININE 3.1 mg/dL (0.6-1.3); MAGNESIUM 2.5 mg/dL (1.8-2.4); POTASSIUM 3.1 mmol/L (3.5-5.1)
--- NOTE | 2016-10-31 15:00 | NUR ---
MS RN NOTE CALLED PHARMACY REMINDING TO BRING UP THE FERRLECIT IV
--- NOTE | 2016-10-31 15:25 | NUR ---
HRIS ANALYST NOTE CALLED PHARMACY AGAIN TO BRING UP IV IRON
--- NOTE | 2016-10-31 15:40 | NUR ---
telegraph messenger notes called and spoke with fatmata zavala to have gracy brought up.
[2016-10-31] MEDS: SOD FERRIC GLUC 125 MG in IV NS 0.9% 100 ML IV SCH (16:21)
[2016-10-31 16:53] LABS: BASOPHILS # (AUTO) 0.1 /CMM (0.0-0.2); BASOPHILS % (AUTO) 0.7 % (0.0-2.0); EOSINOPHILS # (AUTO) 0.3 /CMM (0.0-0.7); HEMATOCRIT 25 % (39-51); HEMOGLOBIN 7.8 g/dL (13.5-17.5); LYMPHOCYTES # (AUTO) 0.7 /CMM (0.8-4.8); LYMPHOCYTES % (AUTO) 7.3 % (20.0-44.0); MEAN CORPUSCULAR HEMOGLOBIN 28 PG (26.0-33.0); MEAN CORPUSCULAR HGB CONC 32 g/dl (31.0-36.0); MEAN CORPUSCULAR VOLUME 90 fL (80-96); MONOCYTES # (AUTO) 0.8 /CMM (0.1-1.30); MONOCYTES % (AUTO) 8.2 % (2.0-12.0); NEUTROPHILS # (AUTO) 7.8 /CMM (1.8-8.9); NEUTROPHILS % (AUTO) 80.8 % (43.0-81.0); PLATELET COUNT (AUTO) 212 /CMM (150-450); RDW COEFFICIENT OF VARIATION 27.6 (11.5-15.0); RED BLOOD CELL COUNT(AUTO) 2.74 MIL/uL (4.5-6.0); WHITE BLOOD COUNT (AUTO) 9.6 K/uL (4.3-11.0)
[2016-10-31] MEDS: CALCIUM CARB 600MG /VIT D 1 EACH TABLET PO SCH (18:00)
[2016-10-31] MEDS: ZINC SULFATE 220 MG CAPSULE GT SCH (18:00)
[2016-10-31] MEDS: PAROXETINE HCL 20 MG TABLET GT SCH (18:00)
--- NOTE | 2016-10-31 19:11 | NUR ---
TARIFF COMPILING CLERK NOTES SPOKE WITH DR RUCKER AND NOTIFIED ADVANCED DIRECTIVE INDICATES NO CHEST COMPRESSIONS. PER MD MARES TO UPDATE CODE STATUS
--- NOTE | 2016-10-31 19:20 | NUR ---
PONY RIDE OPERATOR CLOSING NOTE PATIENT IS RESTING IN BED WITH EYES OPEN. BED IS LOCKED, IN LOWEST POSITION, SIDE RAILS UP X 3, BED ALARM ON. PATIENT IS WATCHING TV. CALL LIGHT WITHIN REACH. ALL NEEDS ARE MET. NO S/S OF PAIN/DISTRESS. VS WNL. PATIENT IS STABLE. V ENT SETTINGS ORDERED. WILL ENDORSE TO THE NEXT SHIFT FOR EPHRAIM.
--- NOTE | 2016-10-31 19:30 | NUR ---
TELE/RN OPENING NOTES PT ASLEEP, EASILY AROUSABLE TO NAME. A/OX2-3. ON MECHANICAL VENT. BREATHING EVEN AND UNLABORED. NO FACIAL GRIMACING OR S/S OF PAIN. ON TELE MONITOR SHOWING SINUS RHYTHM WITH HEART RATE AT 75. NOVASOURCE AT 60ML/HR. JORGE LUIS MIDLINE PATENT AND INTACT. BED IN LOW/LOCKED POSITION, CALL LIGHT IN REACH. SIDE RAILS UPX2. WILL CONTINUE TO MONITOR
[2016-10-31] MEDS: TIZANIDINE HCL 4 MG TABLET GT SCH (21:34)
[2016-10-31] MEDS: ATORVASTATIN 40 MG TABLET GT SCH (21:34)
[2016-10-31] MEDS: INSULIN DETEMIR 100 UNIT/ML CARTRIDGE SQ SCH (21:38)
[2016-10-31] MEDS: *INSULIN REGULAR(HUMULIN R)HUM 100 UNIT/ML VIAL SQ PRN (21:39)
[2016-11-01] VITALS: BP 134/61
[2016-11-01] MEDS: PIPERACILLIN /TAZOBACTAM 2.25 G in IV D5W 50 ML IV SCH ×3 (00:13→12:54)
[2016-11-01 01:29] VITALS: BP 134/61
[2016-11-01 04:00] VITALS: BP 126/69
[2016-11-01] MEDS: RENAL NOVASOURCE 1,000 ML BOTTLE GT PRN (05:15)
[2016-11-01] MEDS: GLYCOPYRROLATE 1 MG TABLET GT SCH ×3 (05:18→21:35)
[2016-11-01] MEDS: BLOOD SUGAR DIAGNOSTIC 1 EACH STRIP VI SCH ×4 (06:45→21:44)
[2016-11-01] MEDS: *INSULIN REGULAR(HUMULIN R)HUM 100 UNIT/ML VIAL SQ PRN ×2 (06:52→21:49)
--- NOTE | 2016-11-01 07:09 | NUR ---
TELE/RN NOTES PT ASLEEP, EASILY AROUSABLE TO NAME. A/OX2-3, ON MECHANICAL VENT WITH SETTINGS FIO2 40%, TV 500, PEEP 5, AC 20. BREATHING EVEN AND UNLABORED. ON TELE MONITOR SR, HR 78. ON NOVASOURCE AT 60 ML/HR TOLERATING WELL. JORGE LUIS MIDLINE PATENT AND INTACT. RIGHT FEMORAL HD CATH IN PLACE. BLOOD SUGAR THIS AM WAS 135 WITH 2 UNITS OF INSULIN COVERAGE. BED IN LOW/LOCKED POSITION, CALL LIGHT IN REACH. TURNED/REPOSITIONED Q2H, EXTREMITIES OFFLOADED. MADE PT COMFORTABLE THROUGHOUT SHIFT. WILL ENDORSE TO AM SHIFT EPHRAIM.
--- NOTE | 2016-11-01 07:38 | NUR ---
REAL ESTATE ADMINISTRATIVE ASSISTANT OPENING NOTE REPORT RECEIVED ON THE PATIENT. PATIENT IS COMFORTABLY SLEEPING IN THE BED. A/O X 4. DENIES PAIN AT THIS TIME. EXTERNAL TELE MONITOR ON. SR HR 80 WITH INVERTED T-WAVE. MD NOTIFIED. BED IS IN LOWEST POSITION, LOCKED, SIDE RAILS UP X 3. VENTILATOR SETTINGS ORDERED. CALL LIGHT WITHIN REACH. ALL NEEDS ARE MET. WILL CONTINUE TO MONITOR.
[2016-11-01 07:50] LABS: BASOPHILS % (AUTO) 0.4 % (0.0-2.0); EOSINOPHILS # (AUTO) 0.4 /CMM (0.0-0.7); EOSINOPHILS % (AUTO) 4.3 % (0.0-6.0); HEMATOCRIT 25 % (39-51); HEMOGLOBIN 8.1 g/dL (13.5-17.5); LYMPHOCYTES # (AUTO) 0.6 /CMM (0.8-4.8); LYMPHOCYTES % (AUTO) 6.2 % (20.0-44.0); MEAN CORPUSCULAR HEMOGLOBIN 29 PG (26.0-33.0); MEAN CORPUSCULAR HGB CONC 33 g/dl (31.0-36.0); MEAN CORPUSCULAR VOLUME 90 fL (80-96); MONOCYTES # (AUTO) 0.7 /CMM (0.1-1.30); MONOCYTES % (AUTO) 7.5 % (2.0-12.0); NEUTROPHILS # (AUTO) 7.7 /CMM (1.8-8.9); NEUTROPHILS % (AUTO) 81.6 % (43.0-81.0); PLATELET COUNT (AUTO) 203 /CMM (150-450); RDW COEFFICIENT OF VARIATION 27.6 (11.5-15.0); RED BLOOD CELL COUNT(AUTO) 2.76 MIL/uL (4.5-6.0); WHITE BLOOD COUNT (AUTO) 9.4 K/uL (4.3-11.0)
[2016-11-01 08:00] VITALS: BP 145/75
[2016-11-01 08:28] LABS: CREATININE 3.5 mg/dL (0.6-1.3); MAGNESIUM 2.6 mg/dL (1.8-2.4); PHOSPHORUS 4.2 mg/dL (2.5-4.9)
[2016-11-01 08:33] LABS: POTASSIUM 2.8 mmol/L (3.5-5.1)
--- NOTE | 2016-11-01 08:45 | NUR ---
RUG CLIPPER NOTE BUN NOTED ELEVATED AT 103. POTASSIUM 208. MD RUCKER NOTIFIED.
[2016-11-01] MEDS: LACTOBACILLUS RHAMNOSUS GG 1 EACH CAP.SPRINK GT SCH ×2 (09:22→17:59)
[2016-11-01] MEDS: PROSOURCE / PROSTAT (PYXIS) 30 ML UDC GT SCH (09:22)
[2016-11-01] MEDS: VIT B CMPLX 3/FA/VIT C/BIOTIN 1 TAB TABLET GT SCH (09:23)
[2016-11-01] MEDS: hydrALAZINE HCL 50 MG TABLET GT SCH ×4 (09:26→21:36)
[2016-11-01] MEDS: DOCUSATE SODIUM LIQ 100 MG/10 ML UDC GT SCH (12:55)
[2016-11-01] MEDS: PANTOPRAZOLE 40 MG/PACK PACK NG SCH (12:55)
[2016-11-01] MEDS: LEVOTHYROXINE SODIUM 100 MCG TABLET GT SCH (12:55)
[2016-11-01] MEDS: AMLODIPINE BESYLATE 10 MG TABLET GT SCH (12:56)
[2016-11-01] MEDS: ISOSORBIDE DINITRATE (10MG) 10 MG TABLET GT SCH (12:56)
[2016-11-01] MEDS: LISINOPRIL (10MG) 10 MG TABLET GT SCH (12:57)
[2016-11-01] MEDS: Z GUARD REMEDY 2 OZ OINT TP PRN ×3 (14:15→18:07)
--- NOTE | 2016-11-01 14:15 | NUR ---
FURNACE REPAIRER NOTE FERLICIT SCHEDULED AT 1400 NOT IN THE UNIT. CALLED PHARMACY TO BRING UP.
[2016-11-01] MEDS: SOD FERRIC GLUC 125 MG in IV NS 0.9% 100 ML IV SCH (14:35)
--- NOTE | 2016-11-01 14:35 | NUR ---
FALSEWORK BUILDER NOTE FERRLECIT DELIVERED BY THE FLIGHT DATA TECHNICIAN. WILL ADMINISTER NOW.
--- NOTE | 2016-11-01 15:46 | NUR ---
POTTERY DECORATION DESIGNER NOTE CLEANED THE PATIENT, CHANGED THE DIAPER, PROVIDED SKIN CARE AND REPOSITIONED THE PATIENT WITH THE ASSISTANCE OF OCTAVIANO NOGUERA. PATIENT TOLERATED THE PROCEDURE WELL. VENTILATOR SETTINGS ARE PRESCRIBED, TUBE FEEDING RESUMED. PATIENT IS STABLE. DENIERS PAIN/DISCOMFORT AT THIS TIME.
--- NOTE | 2016-11-01 15:49 | NUR ---
HOME DEPOT REP NOTE DR. RUCKER NOTIFIED THAT PATIENT JUST UNDERWENT DIALYSIS WITH 1000ML FLUID OUT. NOTIFIED THAT STAT URINE OSMOLALITY ORDER WAS ACKNOWLEDGED BY THE RN, BUT PATIENT JUST UNDERWENT DIALYSIS. PER DOCTOR Jihan RUCKER IT IS OK TO OBTAIN THE SAMPLE LATER VIA STRAIGHT CATHETERIZATION.
[2016-11-01 16:00] VITALS: BP 157/68
[2016-11-01] MEDS: PAROXETINE HCL 20 MG TABLET GT SCH (17:57)
[2016-11-01] MEDS: ZINC SULFATE 220 MG CAPSULE GT SCH (17:58)
[2016-11-01] MEDS: CALCIUM CARB 600MG /VIT D 1 EACH TABLET PO SCH (17:58)
[2016-11-01] MEDS: HYDROCODONE/APAP 5/325MG 1 EACH TABLET GT SCH (17:59)
[2016-11-01] MEDS: INSULIN REGULAR, HUMAN 100 UNIT/ML 3 ML VIAL SQ PRN (18:11)
--- NOTE | 2016-11-01 18:12 | NUR ---
T6ELE RN NOTE BLOOG GLUCOSE 173MG/DL. 3 UNITS OF INSULIN ADMINISTERED PER SLIDING SCALE
--- NOTE | 2016-11-01 18:23 | NUR ---
DISTRIBUTION SPEC NOTE PATIENT REFUSED STRAIGHT CATHETERIZATION PER DR. RUCKER'S ORDER. SN EDUCATED PATIENT ON THE REASON/ PURPOSE OF THE CATHETERIZATION, ON ORDERED URINE TEST. PATIENT STILL REFUSED THE PROCEDURE. PATIENT IS NON-VERBAL D/T TRACHEOSTOMY. HE WHISPERED "NO, NO, DON'T" WHEN THE NURSE EXPLAINED THE PROCEDURE TO THE PATIENT TO OBTAIN AN IMPLIED CONSENT. DR. RUCKER IS NOTIFIED. NO NEW ORDERS AT THIS TIME.
--- NOTE | 2016-11-01 19:15 | NUR ---
TELE/RN OPENING NOTES PT ASLEEP, EASILY AROUSABLE TO NAME. ABLE TO MAKE NEEDS KNOWN. ON MECHANICAL VENTILATOR. GT FEEDING RUNNING NOVASOURCE AT 60ML/HR. RIGHT FEMORAL HD CATH AND JORGE LUIS MIDLINE PATENT AND INTACT. S/P HD TODAY WITH 1L OUT. ANTIBIOTIC ORDERS D/C BY . BED IN LOW/LOCKED POSITION WITH CALL LIGHT IN REACH. SIDE RAILS UPX2 AND BED ALARM ON FOR SAFETY. WILL CONTINUE TO MONITOR Addendum: 11/01/16 at 2016 by DRE GEORGE RN ON TELE MONITOR SHOWING SINUS RHYTHM WITH INVERTED T WAVE, HR=91
--- NOTE | 2016-11-01 19:33 | NUR ---
INSPECTOR QUALITY ASSURANCE CLOSING NOTE PATIENT IS RESTING IN BED COMFORTABLY. VS WNL. EXTERNAL MONITOR READING SR 88. NO S/S OF PAIN/DISCOMFORT AT THIS TIME. BED IS LOCKED, IN LOWEST POSITION, SIDE RAILS UP X 3, BED ALARM ON. VENTILATOR SETTINGS ORDERED. WILL ENDORSE TO NEXT SHIFT FOR EPHRAIM.
[2016-11-01 20:00] VITALS: BP 140/74
[2016-11-01] MEDS: ATORVASTATIN 40 MG TABLET GT SCH (21:35)
[2016-11-01] MEDS: TIZANIDINE HCL 4 MG TABLET GT SCH (21:35)
[2016-11-01] MEDS: INSULIN DETEMIR 100 UNIT/ML CARTRIDGE SQ SCH (21:47)
[2016-11-02] VITALS: BP 127/71
--- NOTE | 2016-11-02 03:30 | NUR ---
TELE/RN NOTES NOTED THAT MIDLINE HAS BEEN PULLED OUT. GRAIN ELEVATOR OPERATOR MADE AWARE.
[2016-11-02 04:00] VITALS: BP 124/60
[2016-11-02] MEDS: RENAL NOVASOURCE 1,000 ML BOTTLE GT PRN (04:10)
[2016-11-02] MEDS: GLYCOPYRROLATE 1 MG TABLET GT SCH ×2 (05:26→13:46)
[2016-11-02] MEDS: BLOOD SUGAR DIAGNOSTIC 1 EACH STRIP VI SCH ×2 (06:52→12:02)
[2016-11-02 06:56] LABS: BASOPHILS # (AUTO) 0.1 /CMM (0.0-0.2); BASOPHILS % (AUTO) 0.5 % (0.0-2.0); EOSINOPHILS # (AUTO) 0.4 /CMM (0.0-0.7); EOSINOPHILS % (AUTO) 3.6 % (0.0-6.0); HEMATOCRIT 26 % (39-51); HEMOGLOBIN 8.2 g/dL (13.5-17.5); LYMPHOCYTES # (AUTO) 0.5 /CMM (0.8-4.8); LYMPHOCYTES % (AUTO) 4.7 % (20.0-44.0); MEAN CORPUSCULAR HEMOGLOBIN 30 PG (26.0-33.0); MEAN CORPUSCULAR HGB CONC 32 g/dl (31.0-36.0); MEAN CORPUSCULAR VOLUME 92 fL (80-96); MONOCYTES # (AUTO) 0.9 /CMM (0.1-1.30); NEUTROPHILS # (AUTO) 9.2 /CMM (1.8-8.9); NEUTROPHILS % (AUTO) 83.2 % (43.0-81.0); PLATELET COUNT (AUTO) 198 /CMM (150-450); RDW COEFFICIENT OF VARIATION 28.2 (11.5-15.0); RED BLOOD CELL COUNT(AUTO) 2.78 MIL/uL (4.5-6.0); WHITE BLOOD COUNT (AUTO) 11.1 K/uL (4.3-11.0)
[2016-11-02] MEDS: INSULIN REGULAR, HUMAN 100 UNIT/ML 3 ML VIAL SQ PRN (06:58)
--- NOTE | 2016-11-02 07:22 | NUR ---
TELE/RN NOTES PT ASLEEP, EASILY AROUSABLE TO NAME. ON MECHANICAL VENT. ON GT FEEDING RUNNING NOVASOURCE AT 60ML/HR. PT TOLERATING WELL. NO IV ACCESS AT THIS TIME, MIDLINE PULLED OUT, ABLE TO CONTROL BLEEDING. THIS AM WITH LAB DRAW, SIGNIFICANT AMOUNT OF BLOOD SEEN. ALSO BLOOD NOTED ON BACK OF RIGHT HEAD. ABLE TO CONTROL ALL BLEEDING AND LINENS CHANGED. OPERATIONS/DISPATCH AWARE. TURNED/REPOSITIONED Q2H AND OFFLOADED EXTREMITIES. PT NON COMPLIANT WITH NURSING CARE AND REFUSED STRAIGHT CATH FOR ORDER OF URINE OSMOLALITY. BED IN LOW/LOCKED POSITION WITH CALL LIGHT IN REACH. SIDE RAILS UPX2. ENDORSED TO AM SHIFT EPHRAIM.
[2016-11-02 07:30] LABS: THYROID STIMULATING HORMONE 10.125 uIU/mL (0.358-3.74)
[2016-11-02 07:34] LABS: CALCIUM, SERUM 8.1 mg/dL (8.5-10.1); CREATININE 3.2 mg/dL (0.6-1.3); MAGNESIUM 2.6 mg/dL (1.8-2.4); PHOSPHORUS 3.8 mg/dL (2.5-4.9)
[2016-11-02 07:42] LABS: POTASSIUM 2.7 mmol/L (3.5-5.1)
[2016-11-02 08:00] VITALS: BP 130/77
--- NOTE | 2016-11-02 08:06 | NUR ---
MS/RN OPENING NOTE PATIENT RECEIVED IN BED AWAKE, IN STABLE CONDITION. ALERT AND ORIENTED TIMES 3. NON VERBAL. ABLE TO MAKE DECISIONS AND NEEDS KNOWN VIA FACIAL GESTURES. TRACH AND VENT DEP. TOLERATING WELL. NO SIGNS OF ACUTE DISTRESS. NO COMPLAIN OF PAIN OR DISCOMFORT AT THIS TIME. ALL NEEDS ATTENDED TO. CALL LIGHT WITHIN REACH. WILL CONTINUE TO MONITOR TO ENSURE SAFETY.
--- NOTE | 2016-11-02 08:15 | NUR ---
MS/RN Midline Nursing super gregoryor made aware that patient needs reinsertion of midline.
--- NOTE | 2016-11-02 08:37 | NUR ---
MS/RN K+ 2.7 Potassium level noted to be 2.7, Dr Cid made aware. Order given to infuse 40meq K+ over four hours. Order entered and sent to pharmacy.
[2016-11-02] MEDS: VIT B CMPLX 3/FA/VIT C/BIOTIN 1 TAB TABLET GT SCH (09:04)
[2016-11-02] MEDS: LACTOBACILLUS RHAMNOSUS GG 1 EACH CAP.SPRINK GT SCH (09:04)
[2016-11-02] MEDS: PROSOURCE / PROSTAT (PYXIS) 30 ML UDC GT SCH (09:04)
[2016-11-02] MEDS: HYDROCODONE/APAP 5/325MG 1 EACH TABLET GT SCH (09:05)
[2016-11-02] MEDS: hydrALAZINE HCL 50 MG TABLET GT SCH ×2 (09:05→13:47)
--- NOTE | 2016-11-02 10:00 | NUR ---
MS/RN REPOSITION PATIENT REFUSED TO BE REPOSITIONED. OFFERED TIMES 3 WITH RISK BENEFITS EXPLAINED. STILL CONTINUE TO REFUSE. WILL CONTINUE TO MONITOR
[2016-11-02] MEDS ORDERED: POTASSIUM CHLORIDE 20 MEQ POWDER PACKET GT ONE (11:00)
--- NOTE | 2016-11-02 11:53 | NUR ---
MS/RN SEEN BY DR RUCKER SEEN BY DR RUCKER WITH NEW ORDER TO DC POTASSIM CHLORIDE 40MEQ IV AND CHANGE TO POTASSIUM CHLORIDE 40MEQ VIA GTUBE TIMES 1. ALSO WITH NEW ORDERS TO DISCHARGE TODAY.
[2016-11-02 12:00] VITALS: BP 149/72
[2016-11-02] MEDS ORDERED: POTASSIUM CL. PREMIX PERIPHER. 50 ML IV SCH (13:00)
[2016-11-02] MEDS: DOCUSATE SODIUM LIQ 100 MG/10 ML UDC GT SCH (13:46)
[2016-11-02] MEDS: AMLODIPINE BESYLATE 10 MG TABLET GT SCH (13:46)
[2016-11-02] MEDS: PANTOPRAZOLE 40 MG/PACK PACK NG SCH (13:46)
[2016-11-02] MEDS: LEVOTHYROXINE SODIUM 100 MCG TABLET GT SCH (13:47)
[2016-11-02] MEDS: ISOSORBIDE DINITRATE (10MG) 10 MG TABLET GT SCH (13:47)
[2016-11-02] MEDS: LISINOPRIL (10MG) 10 MG TABLET GT SCH (13:47)
[2016-11-02] MEDS: SOD FERRIC GLUC 125 MG in IV NS 0.9% 100 ML IV SCH (14:00)
--- NOTE | 2016-11-02 14:40 | NUR ---
MS/RN REPOSITION PATIENT REFUSED TO BE REPOSITION. OFFERED TIMES 3 WITH RISK AND BENEFITS EXPLAINED. STILL CONTINUE TO REFUSE. WILL CONTINUE TO MONITOR AND OFFER.
[2016-11-02 16:00] VITALS: BP 143/69
--- NOTE | 2016-11-02 17:36 | NUR ---
MS/CFA PATIENT DISCHARGE TO [facility]. ALERT AND ORIENTED TIMES 3. NON VERBAL, ABLE TO MAKE NEEDS KNOWN VIA FACIAL GESTURE. NO SIGNS OF ACUTE DISTRESS. NO COMPLAIN OF PAIN OR DISCOMFORT. TRACH AND VENT DEPENDENT TOLERATING WELL. PATIENT LEFT TO [facility] VIA RNEY ACCOMPANIED BY 2 DOUBLE HEAD MACHINE OPERATOR AND RT. TOLERATED WELL. REPORT GIVEN TO CIRO LIZARRAGA FROM [facility]. NAME BAND REMOVED.
== END 2016-11-02 17:43 | DRG 207 ==
LOC: ER 15:05 → TELE 17:38
PROVIDERS: ADMIT Internal Medicine; ATTEND Internal Medicine
PROC: 5A1955Z Respiratory Ventilation, Greater than 96 Consecutive Hours (ICD-10-PCS; principal; 2016-10-24)
PROC: 5A1D60Z (ICD-10-PCS; 2016-10-24)
PROC: 05H533Z Insertion of Infusion Device into Right Subclavian Vein, Percutaneous Approach (ICD-10-PCS; 2016-10-24)
PROC: 30233N1 Transfusion of Nonautologous Red Blood Cells into Peripheral Vein, Percutaneous Approach (ICD-10-PCS; 2016-10-29)
DX: J15.6 Pneumonia due to other Gram-negative bacteria (principal); I50.33 Acute on chronic diastolic (congestive) heart failure; R53.2 Functional quadriplegia; J96.11 Chronic respiratory failure with hypoxia; N18.6 End stage renal disease; I13.2 Hypertensive heart and chronic kidney disease with heart failure and with stage 5 chronic kidney disease, or end stage renal disease; Z99.11 Dependence on respirator [ventilator] status; J44.0 Chronic obstructive pulmonary disease with (acute) lower respiratory infection; E87.1 Hypo-osmolality and hyponatremia; Z93.0 Tracheostomy status; E11.22 Type 2 diabetes mellitus with diabetic chronic kidney disease; L89.629 Pressure ulcer of left heel, unspecified stage; L89.619 Pressure ulcer of right heel, unspecified stage; Z99.2 Dependence on renal dialysis; D63.8 Anemia in other chronic diseases classified elsewhere; D72.829 Elevated white blood cell count, unspecified; E03.9 Hypothyroidism, unspecified; I25.10 Atherosclerotic heart disease of native coronary artery without angina pectoris; E78.5 Hyperlipidemia, unspecified; E87.6 Hypokalemia; Z79.899 Other long term (current) drug therapy; Z95.1 Presence of aortocoronary bypass graft; E11.649 Type 2 diabetes mellitus with hypoglycemia without coma; Z91.15 Patient's noncompliance with renal dialysis; R60.9 Edema, unspecified; Z93.1 Gastrostomy status; Z79.4 Long term (current) use of insulin
CPT/HCPCS: 31720; 36415; 36569; 71010-TC; 80048-TC; 80053-TC; 80061-TC; 80076-TC; 80202-TC; 82962-TC; 83540-TC; 83735-TC; 84100-TC; 84443-TC; 85025-TC; 86850-TC; 86921-TC; 87081-TC; 90935-TC; 92521; 93971-TC; 94002-TC; 94003-TC; 99082-TC; A4606; A6253; A6402; A6403; J0885; J1815; J2543; J2916; J3370; J7030; J7050; J7060; L8501; P9016-BL; Z7610